=== PATIENT | female | born 1990 | race Caucasian/White ===

== ENCOUNTER 2021-02-19 20:39 | Emergency (ER) | payer SELFPAY ==
[2021-02-19 21:12] LABS: Bilirubin Neg (Negative); Blood, Urine 150 (Negative); Clarity Clear (Clear); Glucose, Urine (Dipstick) Normal (Negative); Ketone, Urine Negative (Negative); Leukocyte Negative (Negative); Nitrite Negative (Negative); Protein, Urine (Dipstick) Negative (Neg-Trace); Specific Gravity, Urine 1.015 (1.002-1.036); Urobilinogen Normal mg/dL (Less than 2)
[2021-02-19 21:14] LABS: Pregu Control Background? CLEAR/WHITE (CLR/WHITE); Pregu Control Bar Appear? YES (CONTROL BAR); Specific Gravity 1.015 (1.002-1.036)
[2021-02-19 21:20] LABS: Pregnancy Test - Urine (BHCG) POSITIVE (Negative)
[2021-02-19 21:25] LABS: Bacteria/HPF 2+ HPF (None Seen); RBC/HPF 0-3 HPF (0-3); WBC/HPF 0-3 HPF (0-3)
[2021-02-19 21:26] LABS: Mucous/LPF Rare LPF (<2+)
[2021-02-19] MEDS ORDERED: Acetaminophen 500 MG TAB ONE (22:55)
[2021-02-20 00:03] LABS: #Eosinphils 0.1 10x3/uL (0.0-0.5); #Monocytes 0.4 10x3/uL (0.0-1.1); #Neutrophils 6.7 10x3/uL (1.5-8.4); %Basophils 0.4 % (0.0-2.0); %Eosinophils 0.9 % (0.0-6.0); %Lymphocytes 30.8 % (18.0-47.0); %Monocytes 3.9 % (0.0-10.0); %Neutrophils 63.7 % (40.0-75.0); Hemoglobin 14.1 g/dL (12.0-15.5); Mean Corpuscular HGB CONC 35.2 g/dL (32.0-36.0); Mean Corpuscular Hemoglobin 31.3 pg (27.0-33.0); Mean Corpuscular Volume 89.1 fl (81.6-98.3); Mean Platelet Volume 8.5 fl (7.4-10.4); Platelet Count 408 10x3/uL (150-450); RBC Distribution Width 11.8 % (11.5-14.5); White Blood Cell (WBC) Count 10.5 10x3/uL (3.5-10.5)
== END 2021-02-20 02:52 | disposition home or self-care (01) ==
LOC: CSHERS 20:39
DX: O20.0 Threatened abortion (principal); O99.891 Other specified diseases and conditions complicating pregnancy; D27.0 Benign neoplasm of right ovary; Z3A.01 Less than 8 weeks gestation of pregnancy
CPT/HCPCS: 36415; 76856; 81003; 81015; 81025; 84702; 85025; 86900; 86901

== ENCOUNTER 2021-02-26 11:23 | Emergency (ER) | payer SELFPAY | END 2021-02-26 13:30 | disposition home or self-care (01) | LOC: CSHERS 11:23 | DX: O02.1 Missed abortion (principal); J45.909 Unspecified asthma, uncomplicated | CPT/HCPCS: 84702; 99283 ==